=== PATIENT | male | born 1965 | race Caucasian/White ===

== ENCOUNTER 2018-07-17 17:31 | Observation (INO) | payer SELFPAY ==
[2018-07-17] MEDS ORDERED: Sodium Chloride 0.9% 1,000 ML IV ONE (17:33)
[2018-07-17] MEDS ORDERED: Aspirin 81 MG Tab.Chew PO ONE (17:33)
[2018-07-17] MEDS ORDERED: Nitroglycerin 0.4 MG Tab.SL ONE (17:39)
[2018-07-17] MEDS: Nitroglycerin 0.4 MG Tab.SL SL PRN ×3 (17:42→18:00)
[2018-07-17] MEDS ORDERED: Morphine 2 MG/ML Syringe IVPUSH ONE (18:37)
--- NOTE | 2018-07-17 18:47 | CR ---
HISTORY: Chest pain, shortness of breath. TECHNIQUE: One view of the chest. COMPARISON: 02/24/2018. FINDINGS: Cardiac size and pulmonary vasculature within normal limits. There is no acute lung infiltrate or pulmonary edema. No pneumothorax or pleural effusion. Probable sequelae of prior granulomatous disease within the right midlung zone, unchanged. IMPRESSION: No acute disease. Dictated by Casey Rangel MD @ 07/17/2018 6:46:47 PM Dictated by: Casey Rangel MD @ 07/17/2018 18:46:51 (Electronically Signed)
[2018-07-17 18:54] LABS: CHLORIDE,CL 105 mmol/L (98-107); SODIUM,NA 143 mmol/L (136-148)
--- NOTE | 2018-07-17 19:43 | EDM.PDOC ---
ED HPI GENERAL MEDICAL PROBLEM - General Chief Complaint: Chest Pain Stated Complaint: CHEST PAIN Time Seen by Provider: 07/17/18 17:37 Source of Information: Reports: Patient History Limitations: Reports: No Limitations - History of Present Illness INITIAL COMMENTS - FREE TEXT/NARRATIVE: HISTORY AND PHYSICAL: History of present illness: Patient is a 53-year-old male who presents to the ED today with concern for a 10 out of 10 chest pain that started 10 minutes prior to arrival to the ED. Patient describes the chest pain as a sharp pressure and he points to the middle of his chest. Patient states he's never had chest pain like this before. Patient states he was sitting in his car when the symptoms happened and he felt short of breath and sweaty. He states the pain does not radiate anywhere. Patient states he also feels dizzy with the onset of the chest pain. He has not taken any medications prior to arrival to the ED. Patient denies fever, chills, or cough. Denies headache, neck stiff ness, change in vision, syncope, or near syncope. Denies nausea, vomiting, abdominal pain, diarrhea, constipation, or dysuria. Has not noted any blood in urine or stool. Patient has been eating and drinking appropriately. Patient has a history of valve regurgitation but is not sure which valve. Patient denies any other health history. Review of systems: As per history of present illness and below otherwise all systems reviewed and negative. Past medical history: As per history of present illness and as reviewed below otherwise noncontributory. Surgical history: As per history of present illness and as reviewed below otherwise noncontributory. Social history: See social history for further information Family history: As per history of present illness and as reviewed below otherwise noncontributory. Physical exam: General: Patient is alert, oriented. Patient laying on exam table with positive Spear sign. HEENT: Atraumatic, normocephalic, pupils equal and reactive bilaterally, negative for conjunctival pallor or scleral icterus, mucous membranes moist, TMs normal bilaterally, throat clear, neck supple, nontender, trachea midline. No drooling or trismus noted. No meningeal signs. No hot potato voice noted. Lungs: Clear to auscultation, breath sounds equal bilaterally, chest nontender. Heart: S1S2, regular rate and rhythm without overt murmur. Abdomen: Soft, nondistended, nontender. Negative for masses or hepatosplenomegaly. Negative for costovertebral tenderness. Pelvis: Stable nontender. Genitourinary: Deferred. Rectal: Deferred. Skin: Intact, warm, dry. No lesions or rashes noted. Extremities: Atraumatic, negative for cords or calf pain. Neurovascular unremarkable. Neuro: Awake, alert, oriented. Cranial nerves II through XII unremarkable. Cerebellum unremarkable. Motor and sensory unremarkable throughout. Exam nonfocal. Notes: On initial exam, patient did seem to be in pain as he has a positive Spear sign and is grabbing his chest. Aspirin given after arrival to the ED, and EKG performed initially on arrival. 3 rounds of nitroglycerin were then given following the Aspirin with complete resolution of patient's pain. Will do full labwork and imaging today. EKG was reviewed by myself as well as Dr. Ford. While awaiting diagnostics and imaging, patient did have return of chest pain. Morphine was given at this time with complete resolution of symptoms. Consult to Dr. Leblanc. Will admit to observation. Diagnostics: CBC, CMP, EKG, troponin, chest x-ray, UA Therapeutics: Saline, aspirin, nitroglycerin, morphine Impression: Chest pain, unspecified. Plan: 1. Admit to observation to Dr. Leblanc Definitive disposition and diagnosis as appropriate pending reevaluation and review of above. 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 Gastrointestinal History: Reports: Helicobacter Pylori Psychiatric History: Reports: Anxiety - Infectious Disease History Infectious Disease History: Reports: Chicken Pox, Measles, TB Social & Family History - Family History Family Medical History: Noncontributory - Tobacco Use Smoking Status *Q: Never Smoker - Caffeine Use Caffeine Use: Reports: Coffee - Alcohol Use Days Per Week of Alcohol Use: 7 Number of Drinks Per Day: 1 Total Drinks Per Week: 7 - Recreational Drug Use Recreational Drug Use: No ED ROS GENERAL - Review of Systems Review Of Systems: ROS reveals no pertinent complaints other than HPI. ED EXAM, GENERAL - Physical Exam Exam: See Below (see dictation) Course - Vital Signs Last Recorded V/S: Last Vital Signs Temp 36.5 C 07/17/18 19:01 Pulse 51 L 07/17/18 19:01 Resp 16 07/17/18 19:01 BP 121/80 07/17/18 19:01 Pulse Ox 99 07/17/18 19:01 - Orders/Labs/Meds Orders: Active Orders 24 hr Category Date Time Status Admission Status [Patient Status] [ADT] Stat ADT 07/17/18 19:38 Active EKG Documentation Completion [RC] STAT Care 07/17/18 17:33 Active Labs: Laboratory Tests 07/17/18 07/17/18 07/17/18 Range/Units 17:40 17:40 18:35 WBC 10.46 (4.0-11.0) K/uL RBC 5.22 (4.50-5.90) M/uL Hgb 16.2 (13.0-17.0) g/dL Hct 46.7 (38.0-50.0) % MCV 89.5 (80.0-98.0) fL MCH 31.0 (27.0-32.0) pg MCHC 34.7 (31.0-37.0) g/dL RDW Std Deviation 43.8 (28.0-62.0) fl RDW Coeff of Carlos 14 (11.0-15.0) % Plt Count 198 (150-400) K/uL MPV 10.70 (7.40-12.00) fL Neut % (Auto) 53.4 (48.0-80.0) % Lymph % (Auto) 35.7 (16.0-40.0) % [place] % (Auto) 9.5 (0.0-15.0) % Eos % (Auto) 1.1 (0.0-7.0) % Baso % (Auto) 0.3 (0.0-1.5) % Neut # (Auto) 5.6 (1.4-5.7) K/uL Lymph # (Auto) 3.7 H (0.6-2.4) K/uL [place] # (Auto) 1.0 H (0.0-0.8) K/uL Eos # (Auto) 0.1 (0.0-0.7) K/uL Baso # (Auto) 0.0 (0.0-0.1) K/uL Nucleated RBC % 0.0 /100WBC Nucleated RBCs # 0 K/uL Sodium 143 (136-148) mmol/L Potassium 3.5 (3.5-5.1) mmol/L Chloride 105 (98-107) mmol/L Carbon Dioxide 22.0 (21.0-32.0) mmol/L BUN 15 (7.0-18.0) mg/dL Creatinine 1.3 (0.8-1.3) mg/dL Est Cr Clr Drug Dosing 68.38 mL/min Estimated GFR (MDRD) 57.3 ml/min Glucose 111 H (74-106) mg/dL Calcium 9.1 (8.5-10.1) mg/dL Total Bilirubin 0.8 (0.2-1.0) mg/dL AST 22 (15-37) IU/L ALT 36 (14-63) IU/L Alkaline Phosphatase 71 (46-116) U/L Troponin I < 0.050 (0.000-0.056) ng/mL Total Protein 7.4 (6.4-8.2) g/dL Albumin 3.8 (3.4-5.0) g/dL Globulin 3.6 (2.6-4.0) g/dL Albumin/Globulin Ratio 1.1 (0.9-1.6) Lipase 105 (73-393) U/L Urine Color YELLOW Urine Appearance CLEAR Urine pH 6.5 (5.0-8.0) Ur Specific [place] 1.020 (1.001-1.035) Urine Protein NEGATIVE (NEGATIVE) mg/dL Urine Glucose (UA) NEGATIVE (NEGATIVE) mg/dL Urine Ketones 15 H (NEGATIVE) mg/dL Urine Occult Blood NEGATIVE (NEGATIVE) Urine Nitrite NEGATIVE (NEGATIVE) Urine Bilirubin NEGATIVE (NEGATIVE) Urine Urobilinogen 0.2 (<2.0) EU/dL Ur Leukocyte Esterase NEGATIVE (NEGATIVE) Meds: Medications Discontinued Medications Generic Name Dose Route Start Last Admin Trade Name Freq PRN Reason Stop Dose Admin Aspirin 324 mg 07/17/18 17:33 07/17/18 17:42 Aspirin PO 07/17/18 17:34 324 mg ONETIME ONE Administration Sodium Chloride 1,000 mls @ 999 mls/hr 07/17/18 17:33 07/17/18 17:45 Normal Saline IV 07/17/18 18:33 999 mls/hr BOLUS ONE Administration Morphine Sulfate 2 mg 07/17/18 18:37 07/17/18 18:47 Morphine IVPUSH 07/17/18 18:38 2 mg ONETIME ONE Administration Nitroglycerin 0.4 mg 07/17/18 17:33 07/17/18 18:00 Nitrostat SL 0.4 mg Q5M PRN Administration Chest Pain Nitroglycerin Confirm 07/17/18 17:39 07/17/18 17:44 Nitrostat Administered 07/17/18 17:40 Not Given Dose 0.4 mg .ROUTE .STK-MED ONE Departure - Departure Time of Disposition: 20:01 Disposition: Refer to Observation Condition: Fair Clinical Impression: Chest pain Qualifiers: Chest pain type: unspecified Qualified Code(s): R07.9 - Chest pain, unspecified Referrals: PCP,None [Primary Care Provider] - Forms: ED Department Discharge - My Orders Last 24 Hours: My Active Orders 07/17/18 17:33 EKG Documentation Completion [RC] STAT 07/17/18 19:38 Admission Status [Patient Status] [ADT] Stat - Assessment/Plan Last 24 Hours: My Active Orders 07/17/18 17:33 EKG Documentation Completion [RC] STAT 07/17/18 19:38 Admission Status [Patient Status] [ADT] Stat
[2018-07-17] MEDS ORDERED: Acetaminophen 325 MG Tab PO PRN (20:44)
[2018-07-17] MEDS ORDERED: Sodium Chloride 0.9% 2.5 ML Syringe FLUSH PRN (20:44)
[2018-07-17] MEDS ORDERED: oxyCODONE 5 MG Tab PO PRN (20:45)
[2018-07-17] MEDS: Morphine 2 MG/ML Syringe IVPUSH PRN (22:33)
[2018-07-17] MEDS: Sodium Chloride 0.9% 10 ML Syringe FLUSH PRN (22:35)
[2018-07-18] MEDS: Sodium Chloride 0.9% 10 ML Syringe FLUSH PRN (00:48)
[2018-07-18] MEDS: Morphine 2 MG/ML Syringe IVPUSH PRN ×2 (00:48→03:07)
[2018-07-18] MEDS ORDERED: Nitroglycerin 0.2 MG/HR Transdermal Patch TRDERM ONE (02:26)
[2018-07-18] MEDS ORDERED: Heparin Sod,Pork In 0.45% Nacl 25,000 UNIT/500 ML IV.SOLN IV SCH (02:30)
[2018-07-18] MEDS ORDERED: Heparin Sodium 5,000 Units/ML Vial IVPUSH ONE (02:37)
--- NOTE | 2018-07-18 02:41 | PCM.HP ---
H&P History of Present Illness - General Date of Service: 07/18/18 Admit Problem/Dx: Admission Diagnosis/Problem Admission Diagnosis/Problem Chest pain Source of Information: Patient History Limitations: Reports: No Limitations - History of Present Illness Initial Comments - Free Text/Narative: The patient is a 53-year-old gentleman who presented to the emergency department approximately 6 hours ago with a complaint of 10 out of 10 chest pain. The patient reported that the pain that started approximately 10 minutes prior to arrival. The patient had described the pain in the center of his chest radiating into his neck which was described as a 10 out of 10 type of pain. Further, the patient says that the pain "dropped him to his knees". The patient says that he has been having difficulty since April of this year with shortness of breath, cough and difficulty breathing. Patient says that he has had a workup here which had been previously negative. The patient says that he has had some problem with nausea associated with this as well as dizziness and lightheadedness. Further, the patient says that he was essentially doing nothing when the pain started. Onset of Symptoms: Reports: Sudden Duration of Symptoms: Reports: Hour(s):, Getting Worse Location: Reports: Chest Quality: Reports: Dull, Pressure Severity: Moderate Improves with: Reports: Medication, Rest Worsens with: Reports: None Associated Symptoms: Reports: Nausea/Vomiting, Shortness of Breath chest Pain Score (Numeric/FACES): 6 - Related Data Allergies/Adverse Reactions: Allergies Allergy/AdvReac Type Severity Reaction Status Date / Time No Known Allergies Allergy Verified 07/17/18 17:34 Home Medications: Home Meds Anxiety Medication 07/17/18 [History] Past Medical History Cardiovascular History: Reports: Other (See Below) Other Cardiovascular History: " weak and leaky heart valve" Respiratory History: Reports: SOB, Other (See Below) Other Respiratory History: 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 Gastrointestinal History: Reports: Helicobacter Pylori Psychiatric History: Reports: Anxiety - Infectious Disease History Infectious Disease History: Reports: Chicken Pox, Measles, TB Social & Family History - Family History Family Medical History: Noncontributory - Tobacco Use Smoking Status *Q: Never Smoker - Caffeine Use Caffeine Use: Reports: Coffee - Alcohol Use Days Per Week of Alcohol Use: 4 Number of Drinks Per Day: 2 Total Drinks Per Week: 8 - Recreational Drug Use Recreational Drug Use: No H&P Review of Systems - Review of Systems: Review Of Systems: See Below General: Reports: Weakness, Fatigue HEENT: Reports: No Symptoms Pulmonary: Reports: Shortness of Breath, Cough Cardiovascular: Reports: Chest Pain, Palpitations, Lightheadedness Gastrointestinal: Reports: Nausea Genitourinary: Reports: No Symptoms Musculoskeletal: Reports: No Symptoms Skin: Reports: No Symptoms Psychiatric: Reports: No Symptoms Neurological: Reports: No Symptoms Hematologic/Lymphatic: Reports: No Symptoms Immunologic: Reports: No Symptoms Exam - Exam Exam: See Below - Vital Signs Vital Signs: Last Vital Signs Temp 36.9 C 07/18/18 01:13 Pulse 51 L 07/18/18 01:13 Resp 19 07/18/18 01:13 BP 111/76 07/18/18 01:13 Pulse Ox 93 L 07/18/18 01:13 Weight: 89.358 kg - Exam Quality Assessment: No: Supplemental Oxygen General: Alert, Oriented, Cooperative, Mild Distress HEENT: Conjunctiva Clear, EACs Clear, Nares Patent, PERRLA. No: Mucosa Moist & [place] (Dry) Neck: Supple, Trachea Midline Lungs: Clear to Auscultation, Normal Respiratory Effort Cardiovascular: Regular Rate, Regular Rhythm, Normal S1, Normal S2 GI/Abdominal Exam: Normal Bowel Sounds, Soft, Non-Tender, No Distention (Male) Exam: Deferred Rectal (Males) Exam: Deferred Back Exam: Normal Inspection, Full Range of Motion Extremities: Normal Inspection, No Pedal Edema Skin: Warm, Dry, Intact Neurological: Cranial Nerves Intact Psychiatric: Alert, Normal Affect, Normal Mood - Patient Data Lab Results Last 24 hrs: Laboratory Results - last 24 hr 07/17/18 07/17/18 07/17/18 Range/Units 17:40 17:40 18:35 WBC 10.46 (4.0-11.0) K/uL RBC 5.22 (4.50-5.90) M/uL Hgb 16.2 (13.0-17.0) g/dL Hct 46.7 (38.0-50.0) % MCV 89.5 (80.0-98.0) fL MCH 31.0 (27.0-32.0) pg MCHC 34.7 (31.0-37.0) g/dL RDW Std Deviation 43.8 (28.0-62.0) fl RDW Coeff of Carlos 14 (11.0-15.0) % Plt Count 198 (150-400) K/uL MPV 10.70 (7.40-12.00) fL Neut % (Auto) 53.4 (48.0-80.0) % Lymph % (Auto) 35.7 (16.0-40.0) % [place] % (Auto) 9.5 (0.0-15.0) % Eos % (Auto) 1.1 (0.0-7.0) % Baso % (Auto) 0.3 (0.0-1.5) % Neut # (Auto) 5.6 (1.4-5.7) K/uL Lymph # (Auto) 3.7 H (0.6-2.4) K/uL [place] # (Auto) 1.0 H (0.0-0.8) K/uL Eos # (Auto) 0.1 (0.0-0.7) K/uL Baso # (Auto) 0.0 (0.0-0.1) K/uL Nucleated RBC % 0.0 /100WBC Nucleated RBCs # 0 K/uL Sodium 143 (136-148) mmol/L Potassium 3.5 (3.5-5.1) mmol/L Chloride 105 (98-107) mmol/L Carbon Dioxide 22.0 (21.0-32.0) mmol/L BUN 15 (7.0-18.0) mg/dL Creatinine 1.3 (0.8-1.3) mg/dL Est Cr Clr Drug Dosing 68.38 mL/min Estimated GFR (MDRD) 57.3 ml/min Glucose 111 H (74-106) mg/dL Calcium 9.1 (8.5-10.1) mg/dL Total Bilirubin 0.8 (0.2-1.0) mg/dL AST 22 (15-37) IU/L ALT 36 (14-63) IU/L Alkaline Phosphatase 71 (46-116) U/L Troponin I < 0.050 (0.000-0.056) ng/mL Total Protein 7.4 (6.4-8.2) g/dL Albumin 3.8 (3.4-5.0) g/dL Globulin 3.6 (2.6-4.0) g/dL Albumin/Globulin Ratio 1.1 (0.9-1.6) Lipase 105 (73-393) U/L Urine Color YELLOW Urine Appearance CLEAR Urine pH 6.5 (5.0-8.0) Ur Specific [place] 1.020 (1.001-1.035) Urine Protein NEGATIVE (NEGATIVE) mg/dL Urine Glucose (UA) NEGATIVE (NEGATIVE) mg/dL Urine Ketones 15 H (NEGATIVE) mg/dL Urine Occult Blood NEGATIVE (NEGATIVE) Urine Nitrite NEGATIVE (NEGATIVE) Urine Bilirubin NEGATIVE (NEGATIVE) Urine Urobilinogen 0.2 (<2.0) EU/dL Ur Leukocyte Esterase NEGATIVE (NEGATIVE) 07/17/18 Range/Units 23:44 WBC (4.0-11.0) K/uL RBC (4.50-5.90) M/uL Hgb (13.0-17.0) g/dL Hct (38.0-50.0) % MCV (80.0-98.0) fL MCH (27.0-32.0) pg MCHC (31.0-37.0) g/dL RDW Std Deviation (28.0-62.0) fl RDW Coeff of Carlos (11.0-15.0) % Plt Count (150-400) K/uL MPV (7.40-12.00) fL Neut % (Auto) (48.0-80.0) % Lymph % (Auto) (16.0-40.0) % Hardy % (Auto) (0.0-15.0) % Eos % (Auto) (0.0-7.0) % Baso % (Auto) (0.0-1.5) % Neut # (Auto) (1.4-5.7) K/uL Lymph # (Auto) (0.6-2.4) K/uL [place] # (Auto) (0.0-0.8) K/uL Eos # (Auto) (0.0-0.7) K/uL Baso # (Auto) (0.0-0.1) K/uL Nucleated RBC % /100WBC Nucleated RBCs # K/uL Sodium (136-148) mmol/L Potassium (3.5-5.1) mmol/L Chloride (98-107) mmol/L Carbon Dioxide (21.0-32.0) mmol/L BUN (7.0-18.0) mg/dL Creatinine (0.8-1.3) mg/dL Est Cr Clr Drug Dosing mL/min Estimated GFR (MDRD) ml/min Glucose (74-106) mg/dL Calcium (8.5-10.1) mg/dL Total Bilirubin (0.2-1.0) mg/dL AST (15-37) IU/L ALT (14-63) IU/L Alkaline Phosphatase (46-116) U/L Troponin I 2.127 H* (0.000-0.056) ng/mL Total Protein (6.4-8.2) g/dL Albumin (3.4-5.0) g/dL Globulin (2.6-4.0) g/dL Albumin/Globulin Ratio (0.9-1.6) Lipase (73-393) U/L Urine Color Urine Appearance Urine pH (5.0-8.0) Ur Specific [place] (1.001-1.035) Urine Protein (NEGATIVE) mg/dL Urine Glucose (UA) (NEGATIVE) mg/dL Urine Ketones (NEGATIVE) mg/dL Urine Occult Blood (NEGATIVE) Urine Nitrite (NEGATIVE) Urine Bilirubin (NEGATIVE) Urine Urobilinogen (<2.0) EU/dL Ur Leukocyte Esterase (NEGATIVE) Result Diagrams: 07/17/18 17:40 07/17/18 17:40 EKG INTERPRETATION EKG Date: 07/18/18 Time: 02:34 Rhythm: NSR [place]: Normal P-Wave: Present QRS: Normal ST-T: Other (Borderline) QT: Normal Comparison: Change From Previous EKG EKG Interpretation Comments: Low voltage EKG, dynamic changes with flattening of ST segments in V1 and V2 V3 and other precordial leads. Likely anterior infarct. - Problem List (1) NSTEMI (non-ST elevated myocardial infarction) SNOMED Code(s): 99642842 ICD Code: I21.4 - NON-ST ELEVATION (NSTEMI) MYOCARDIAL INFARCTION Status: Acute Priority: High Current Visit: Yes (2) Elevated troponin I level SNOMED Code(s): 174971100 ICD Code: R74.8 - ABNORMAL LEVELS OF OTHER SERUM ENZYMES Status: Acute Priority: High Current Visit: Yes (3) Acute coronary syndrome SNOMED Code(s): 330378719 ICD Code: I24.9 - ACUTE ISCHEMIC HEART DISEASE, UNSPECIFIED Status: Acute Priority: High Current Visit: Yes Problem List Initiated/Reviewed/Updated: Yes Orders Last 24hrs: Active Orders 24 hr Category Date Time Status Admission Status [Patient Status] [ADT] Stat ADT 07/17/18 19:38 Active EKG 12 Lead [EKG Documentation Completion] [RC] AM Care 07/18/18 08:00 Active EKG 12 Lead [EKG Documentation Completion] [RC] STAT Care 07/18/18 02:34 Active Heart Healthy Diet [DIET] Diet 07/18/18 Breakfast Active BMP [BASIC METABOLIC PANEL,BMP] [CHEM] AM Lab 07/18/18 05:11 Ordered CBC WITH AUTO DIFF [HEME] AM Lab 07/18/18 05:11 Ordered TROPONIN I [CHEM] Routine Lab 07/18/18 05:30 Ordered Acetaminophen [Tylenol] Med 07/17/18 20:44 Active 650 mg PO Q6H PRN Heparin Sod,Pork In 0.45% Nacl [Heparin-1/2Ns 25,000 Med 07/18/18 02:30 Ordered Units/500] 25,000 unit in 500 ml IV TITRATE Morphine Med 07/17/18 20:45 Active 2 mg IVPUSH Q2H PRN Nitroglycerin [Nitro-Dur 0.2 MG/Hr] Med 07/18/18 02:26 Once 0.2 mg TRDERM ONETIME ONE Sodium Chloride 0.9% [Saline Flush] Med 07/17/18 20:44 Active 10 ml FLUSH ASDIRECTED PRN Sodium Chloride 0.9% [Saline Flush] Med 07/17/18 20:44 Active 2.5 ml FLUSH ASDIRECTED PRN oxyCODONE Med 07/17/18 20:45 Active 5 mg PO Q4H PRN Convert IV to Saline Lock [OM.PC] Routine Oth 07/17/18 20:44 Ordered Medication Orders Acetaminophen (Tylenol) 650 mg PO Q6H PRN PRN Reason: Pain (mild 1-3) Heparin Sodium/Sodium Chloride (Heparin-1/2ns 25,000 Units/500) 25,000 unit in 500 mls @ 21.446 mls/hr IV TITRATE UZMA; Protocol Morphine Sulfate (Morphine) 2 mg IVPUSH Q2H PRN PRN Reason: Pain (severe 7-10) Last Admin: 07/18/18 00:48 Dose: 2 mg Admin: 07/17/18 22:33 Dose: 2 mg Nitroglycerin (Nitro-Dur 0.2 Mg/Hr) 0.2 mg TRDERM ONETIME ONE Stop: 07/18/18 02:27 Oxycodone HCl (Oxycodone) 5 mg PO Q4H PRN PRN Reason: Pain (moderate 4-6) Last Admin: 07/17/18 21:07 Dose: 5 mg Sodium Chloride (Saline Flush) 10 ml FLUSH ASDIRECTED PRN PRN Reason: Keep Vein Open Last Admin: 07/18/18 00:48 Dose: 10 ml Admin: 07/17/18 22:35 Dose: 10 ml Sodium Chloride (Saline Flush) 2.5 ml FLUSH ASDIRECTED PRN PRN Reason: Keep Vein Open Assessment/Plan Comment:: The patient is a 53-year-old gentleman who had presented to the emergency department with a complaint of chest pain. I have reviewed both EKGs from admission and most recently. Patient does have a marked elevation in his troponin from undetectable to 2.1. As a result of this this establishes a diagnosis of NSTEMI. The patient will be started on heparin drip. I've also started the patient on Nitropaste. The patient will be kept in telemetry. I've made arrangements for the patient to be flown to [place] emergency room for further evaluation and treatment. Dr. Gonzalez accepting. This history and physical will also be considered as a discharge summary.
[2018-07-18] MEDS ORDERED: Nitroglycerin 2% Oint 1 GM UD Packet TOP ONE (03:00)
== END 2018-07-18 03:37 ==
LOC: MW.ED 17:31 → MW.MS 20:07
PROVIDERS: ADMIT Internal Medicine; ATTEND Internal Medicine
DX: I21.4 Non-ST elevation (NSTEMI) myocardial infarction (principal); I24.9 Acute ischemic heart disease, unspecified; F41.9 Anxiety disorder, unspecified; Z79.899 Other long term (current) drug therapy
CPT/HCPCS: 36415; 71045; 71045-26; 80053; 81003; 83690; 84484; 85025; 85610; 93005; 96361; 96374; 96375; 96376; 99284; 99285-25; A9270-GY; G0378; J1644; J2270; J7040

== ENCOUNTER 2018-08-27 16:55 | Emergency (ER) | payer SELFPAY ==
[2018-08-27] MEDS ORDERED: Sodium Chloride 0.9% 10 ML Syringe FLUSH PRN (17:03)
[2018-08-27] MEDS ORDERED: Sodium Chloride 0.9% 2.5 ML Syringe FLUSH PRN (17:03)
[2018-08-27] MEDS ORDERED: Sodium Chloride 0.9% 10 ML SDV IV PRN (17:03)
--- NOTE | 2018-08-27 17:20 | EDM.PDOC ---
ED HPI GENERAL MEDICAL PROBLEM - General Chief Complaint: Trauma Stated Complaint: TRAUMA ALERT Time Seen by Provider: 08/27/18 17:16 - History of Present Illness INITIAL COMMENTS - FREE TEXT/NARRATIVE: HISTORY AND PHYSICAL: History of present illness: Patient's 53-year-old white male with history coronary artery disease with left main stenting and recent past he was subsequently diagnosed with pneumonia and had treatment with antibiotics for which she's finished since. He comes in today with coughing that resulted in syncope he states he's had posttussive syncope presumptively vasovagal episodes multiple times prior. He denies chest pain he states he has had some shortness of breath and is frustrated with the persistence of the cough. No fever chills nausea vomiting or other complaints Review of systems: As per history of present illness and below otherwise all systems reviewed and negative. Past medical history: As per history of present illness and as reviewed below otherwise noncontributory. Surgical history: As per history of present illness and as reviewed below otherwise noncontributory. Social history: No reported history of drug or alcohol abuse. Family history: As per history of present illness and as reviewed below otherwise noncontributory. Physical exam: HEENT: Atraumatic, normocephalic, pupils reactive, negative for conjunctival pallor or scleral icterus, mucous membranes moist, throat clear, neck supple, nontender, trachea midline. Lungs: Clear to auscultation, breath sounds equal bilaterally, chest nontender. Heart: S1S2, regular, negative for clicks, rubs, or JVD. Abdomen: Soft, nondistended, nontender. Negative for masses or hepatosplenomegaly. Negative for costovertebral tenderness. Pelvis: Stable nontender. Genitourinary: Deferred. Rectal: Deferred. Extremities: Atraumatic, negative for cords or calf pain. Neurovascular unremarkable. Neuro: Awake, alert, oriented. Cranial nerves II through XII unremarkable. Cerebellum unremarkable. Motor and sensory unremarkable throughout. Exam nonfocal. Diagnostics: CBC CMP troponin PT/INR BNP chest x-ray EKG CT brain Therapeutics: IV O2 monitor Impression: #1 posttussive syncope #2 history of coronary artery disease with coronary stent #3 history of pneumonia Definitive disposition and diagnosis as appropriate pending reevaluation and review of above. - Related Data Allergies Allergy/AdvReac Type Severity Reaction Status Date / Time No Known Allergies Allergy Verified 07/17/18 17:34 Home Meds: Home Meds Albuterol Sulfate [Proair Respiclick] 90 mcg IH DAILY 08/27/18 [History] Aspirin [Adult Low Dose Aspirin EC] 81 mg PO DAILY 08/27/18 [History] Clopidogrel [Plavix] 75 mg PO DAILY 08/27/18 [History] Doxycycline Hyclate 100 mg PO DAILY 08/27/18 [History] Escitalopram [Lexapro] 10 mg PO DAILY 08/27/18 [History] Nitroglycerin [Nitrostat] 0.4 mg SL DAILY 08/27/18 [History] atorvaSTATin [Lipitor] 40 mg PO BEDTIME 08/27/18 [History] clonazePAM [Clonazepam] 0.25 mg PO DAILY 08/27/18 [History] predniSONE [Prednisone] 50 mg PO DAILY 08/27/18 [History] Past Medical History Cardiovascular History: Reports: Other (See Below) Other Cardiovascular History: " weak and leaky heart valve" Respiratory History: Reports: SOB, Other (See Below) Other Respiratory History: 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 ED EXAM, GENERAL - Physical Exam Exam: See Below (See dictation) Course - Vital Signs Last Recorded V/S: Last Vital Signs Temp 36.2 C 08/27/18 16:55 Pulse 95 08/27/18 16:55 Resp 16 08/27/18 16:55 BP 103/76 08/27/18 16:55 Pulse Ox 97 08/27/18 16:55 - Orders/Labs/Meds Orders: Active Orders 24 hr Category Date Time Status Admission Status [Patient Status] [ADT] Stat ADT 08/27/18 17:58 Active Cardiac Monitoring [RC] . DIRECTED Care 08/27/18 17:03 Active EKG Documentation Completion [RC] STAT Care 08/27/18 17:03 Active Oxygen Therapy [RC] PRN Care 08/27/18 17:03 Active Pulse Oximetry [RC] CONTINUOUS Care 08/27/18 17:03 Active CULTURE BLOOD [BC] Stat Lab 08/27/18 17:15 Stop Req CULTURE BLOOD [BC] Stat Lab 08/27/18 17:25 Received Sodium Chloride 0.9% [Normal Saline] Med 08/27/18 17:03 Active 10 ml IV ASDIRECTED PRN Sodium Chloride 0.9% [Saline Flush] Med 08/27/18 17:03 Active 10 ml FLUSH ASDIRECTED PRN Sodium Chloride 0.9% [Saline Flush] Med 08/27/18 17:03 Active 2.5 ml FLUSH ASDIRECTED PRN Blood Culture x2 Reflex Set [OM.PC] Stat Ot 08/27/18 17:40 Ordered Peripheral IV Insertion Adult [OM.PC] Stat Ot 08/27/18 17:03 Ordered Medication Orders Sodium Chloride (Saline Flush) 10 ml FLUSH ASDIRECTED PRN PRN Reason: Keep Vein Open Sodium Chloride (Saline Flush) 2.5 ml FLUSH ASDIRECTED PRN PRN Reason: Keep Vein Open Sodium Chloride (Normal Saline) 10 ml IV ASDIRECTED PRN PRN Reason: IV Use Labs: Laboratory Tests 08/27/18 08/27/18 08/27/18 Range/Units 17:15 17:15 17:15 WBC 14.74 H (4.0-11.0) K/uL RBC 5.73 (4.50-5.90) M/uL Hgb 17.9 H (13.0-17.0) g/dL Hct 53.6 H (38.0-50.0) % MCV 93.5 (80.0-98.0) fL MCH 31.2 (27.0-32.0) pg MCHC 33.4 (31.0-37.0) g/dL RDW Std Deviation 48.5 (28.0-62.0) fl RDW Coeff of Carlos 14 (11.0-15.0) % Plt Count 198 (150-400) K/uL MPV 10.90 (7.40-12.00) fL Add Manual Diff YES Neutrophils % (Manual) 66 (48.0-80.0) % Band Neutrophils % 3 % Lymphocytes % (Manual) 21 (16.0-40.0) % Monocytes % (Manual) 9 (0.0-15.0) % Eosinophils % (Manual) 1 (0.0-7.0) % Nucleated RBC % 0.0 /100WBC Absolute Seg Neuts 9.7 H (1.4-5.7) Band Neutrophils # 0.4 Lymphocytes # (Manual) 3.1 H (0.6-2.4) Monocytes # (Manual) 1.3 H (0.0-0.8) Eosinophils # (Manual) 0.1 (0.0-0.7) Nucleated RBCs # 0 K/uL INR 0.96 Sodium 143 (136-148) mmol/L Potassium 4.2 (3.5-5.1) mmol/L Chloride 108 H (98-107) mmol/L Carbon Dioxide 25.8 (21.0-32.0) mmol/L BUN 17 (7.0-18.0) mg/dL Creatinine 1.3 (0.8-1.3) mg/dL Est Cr Clr Drug Dosing 68.38 mL/min Estimated GFR (MDRD) 57.3 ml/min Glucose 138 H (74-106) mg/dL Calcium 9.1 (8.5-10.1) mg/dL Total Bilirubin 1.3 H (0.2-1.0) mg/dL AST 23 (15-37) IU/L ALT 60 (14-63) IU/L Alkaline Phosphatase 85 (46-116) U/L B-Natriuretic Peptide (<100) PG/ML Total Protein 7.0 (6.4-8.2) g/dL Albumin 3.4 (3.4-5.0) g/dL Globulin 3.6 (2.6-4.0) g/dL Albumin/Globulin Ratio 0.9 (0.9-1.6) Urine Color Urine Appearance Urine pH (5.0-8.0) Ur Specific [place] (1.001-1.035) Urine Protein (NEGATIVE) mg/dL Urine Glucose (UA) (NEGATIVE) mg/dL Urine Ketones (NEGATIVE) mg/dL Urine Occult Blood (NEGATIVE) Urine Nitrite (NEGATIVE) Urine Bilirubin (NEGATIVE) Urine Urobilinogen (<2.0) EU/dL Ur Leukocyte Esterase (NEGATIVE) Urine RBC (0-2/HPF) Urine WBC (0-5/HPF) Ur Epithelial Cells (NONE-FEW) Urine Bacteria (NEGATIVE) 08/27/18 08/27/18 Range/Units 17:15 17:30 WBC (4.0-11.0) K/uL RBC (4.50-5.90) M/uL Hgb (13.0-17.0) g/dL Hct (38.0-50.0) % MCV (80.0-98.0) fL MCH (27.0-32.0) pg MCHC (31.0-37.0) g/dL RDW Std Deviation (28.0-62.0) fl RDW Coeff of Carlos (11.0-15.0) % Plt Count (150-400) K/uL MPV (7.40-12.00) fL Add Manual Diff Neutrophils % (Manual) (48.0-80.0) % Band Neutrophils % % Lymphocytes % (Manual) (16.0-40.0) % Monocytes % (Manual) (0.0-15.0) % Eosinophils % (Manual) (0.0-7.0) % Nucleated RBC % /100WBC Absolute Seg Neuts (1.4-5.7) Band Neutrophils # Lymphocytes # (Manual) (0.6-2.4) Monocytes # (Manual) (0.0-0.8) Eosinophils # (Manual) (0.0-0.7) Nucleated RBCs # K/uL INR Sodium (136-148) mmol/L Potassium (3.5-5.1) mmol/L Chloride (98-107) mmol/L Carbon Dioxide (21.0-32.0) mmol/L BUN (7.0-18.0) mg/dL Creatinine (0.8-1.3) mg/dL Est Cr Clr Drug Dosing mL/min Estimated GFR (MDRD) ml/min Glucose (74-106) mg/dL Calcium (8.5-10.1) mg/dL Total Bilirubin (0.2-1.0) mg/dL AST (15-37) IU/L ALT (14-63) IU/L Alkaline Phosphatase (46-116) U/L B-Natriuretic Peptide 106 H (<100) PG/ML Total Protein (6.4-8.2) g/dL Albumin (3.4-5.0) g/dL Globulin (2.6-4.0) g/dL Albumin/Globulin Ratio (0.9-1.6) Urine Color YELLOW Urine Appearance CLEAR Urine pH 5.5 (5.0-8.0) Ur Specific [place] >= 1.030 (1.001-1.035) Urine Protein NEGATIVE (NEGATIVE) mg/dL Urine Glucose (UA) NEGATIVE (NEGATIVE) mg/dL Urine Ketones NEGATIVE (NEGATIVE) mg/dL Urine Occult Blood TRACE-INTACT H (NEGATIVE) Urine Nitrite NEGATIVE (NEGATIVE) Urine Bilirubin NEGATIVE (NEGATIVE) Urine Urobilinogen 0.2 (<2.0) EU/dL Ur Leukocyte Esterase NEGATIVE (NEGATIVE) Urine RBC 0-1 (0-2/HPF) Urine WBC 0-1 (0-5/HPF) Ur Epithelial Cells RARE (NONE-FEW) Urine Bacteria RARE (NEGATIVE) Meds: Medications Generic Name Dose Route Start Last Admin Trade Name Freq PRN Reason Stop Dose Admin Sodium Chloride 10 ml 08/27/18 17:03 Saline Flush FLUSH ASDIRECTED PRN Keep Vein Open Sodium Chloride 2.5 ml 08/27/18 17:03 Saline Flush FLUSH ASDIRECTED PRN Keep Vein Open Sodium Chloride 10 ml 08/27/18 17:03 Normal Saline IV ASDIRECTED PRN IV Use Discontinued Medications Generic Name Dose Route Start Last Admin Trade Name Freq PRN Reason Stop Dose Admin Iopamidol 50 ml 08/27/18 18:47 08/27/18 18:48 Isovue-370 (76%) IV 08/27/18 18:48 50 ml ONETIME ONE Administration Departure - Departure Time of Disposition: 19:06 Disposition: Home, Self-Care 01 Condition: Good Clinical Impression: Hand injury, Boxers fracture - Discharge Information Referrals: PCP,Unknown [Primary Care Provider] - Forms: ED Department Discharge Additional Instructions: The following information is given to patients seen in the emergency department who are being discharged to home. This information is to outline your options for follow-up care. We provide all patients seen in our emergency department with a follow-up referral. The need for follow-up, as well as the timing and circumstances, are variable depending upon the specifics of your emergency department visit. If you don't have a primary care physician on staff, we will provide you with a referral. We always advise you to contact your personal physician following an emergency department visit to inform them of the circumstance of the visit and for follow-up with them and/or the need for any referrals to a consulting specialist. The emergency department will also refer you to a specialist when appropriate. This referral assures that you have the opportunity for followup care with a specialist. All of these measure are taken in an effort to provide you with optimal care, which includes your followup. Under all circumstances we always encourage you to contact your private physician who remains a resource for coordinating your care. When calling for followup care, please make the office aware that this follow-up is from your recent emergency room visit. If for any reason you are refused follow-up, please contact the [facility] emergency department at and asked to speak to the emergency department charge nurse. [facility] [address], [address] [place] [address] Ulnar gutter splint aluminum/foam splint as directed Motrin/Tylenol as directed follow-up orthopedic surgery: Scheduled appointment return as needed as discussed - My Orders Last 24 Hours: My Active Orders 08/27/18 17:03 Cardiac Monitoring [RC] . DIRECTED EKG Documentation Completion [RC] STAT Oxygen Therapy [RC] PRN Pulse Oximetry [RC] CONTINUOUS Sodium Chloride 0.9% [Normal Saline] 10 ml IV ASDIRECTED PRN Sodium Chloride 0.9% [Saline Flush] 10 ml FLUSH ASDIRECTED PRN Sodium Chloride 0.9% [Saline Flush] 2.5 ml FLUSH ASDIRECTED PRN Peripheral IV Insertion Adult [OM.PC] Stat 08/27/18 17:15 CULTURE BLOOD [BC] Stat 08/27/18 17:25 CULTURE BLOOD [BC] Stat 08/27/18 17:40 Blood Culture x2 Reflex Set [OM.PC] Stat 08/27/18 17:58 Admission Status [Patient Status] [ADT] Stat - Assessment/Plan Last 24 Hours: My Active Orders 08/27/18 17:03 Cardiac Monitoring [RC] . DIRECTED EKG Documentation Completion [RC] STAT Oxygen Therapy [RC] PRN Pulse Oximetry [RC] CONTINUOUS Sodium Chloride 0.9% [Normal Saline] 10 ml IV ASDIRECTED PRN Sodium Chloride 0.9% [Saline Flush] 10 ml FLUSH ASDIRECTED PRN Sodium Chloride 0.9% [Saline Flush] 2.5 ml FLUSH ASDIRECTED PRN Peripheral IV Insertion Adult [OM.PC] Stat 08/27/18 17:15 CULTURE BLOOD [BC] Stat 08/27/18 17:25 CULTURE BLOOD [BC] Stat 08/27/18 17:40 Blood Culture x2 Reflex Set [OM.PC] Stat 08/27/18 17:58 Admission Status [Patient Status] [ADT] Stat
--- NOTE | 2018-08-27 17:39 | CR ---
INDICATION: Hx of heart problems. Pt is coughing so hard hes passing out. TECHNIQUE: Chest 1 view. COMPARISON: FINDINGS: Cardiovascular and mediastinum: Heart size and vasculature are normal in caliber and appearance. Mediastinum is within normal limits. Lungs and pleural space: Lungs are clear. No sign of infiltrate or mass. No sign of pleural effusion. No pneumothorax. Bones and soft tissues: No significant findings. IMPRESSION: Unremarkable chest. Dictated by: Norman Barrett MD @ 08/27/2018 17:37:54 (Electronically Signed)
--- NOTE | 2018-08-27 17:39 | CT ---
Indication: Coughing so hard pt is passing out Technique: CT of the head without contrast. Coronal and sagittal reformatted images. Bone and soft tissue algorithms. Comparison: 03/11/2018 CT head Findings: No acute intracranial hemorrhage or extra-axial collection. No evidence of acute cortical infarction. No mass effect or midline shift. Normal cerebral volume. The ventricles are normal in size, shape and contour. There is normal lenz and white matter differentiation. The orbital contents are normal. Mastoid air cells are clear. No calvarial fractures. No lytic or sclerotic osseous lesions within the calvarium or skull base. Scalp and other imaged soft tissue structures are normal. Mild polypoid mucosal thickening in the left maxillary sinus. Impression: No acute intracranial abnormality. Please note that all CT scans at this facility use dose modulation, iterative reconstruction, and/or weight-based dosing when appropriate to reduce radiation dose to as low as reasonably achievable. Dictated by Norman Davis MD @ Aug 27 2018 5:34PM Signed by Dr. Norman Davis @ Aug 27 2018 5:38PM
[2018-08-27] MEDS ORDERED: Iopamidol 755 MG/ML 50 ML Bottle IV ONE (18:47)
--- NOTE | 2018-08-27 19:01 | CT ---
INDICATION: Shortness of breath. History of "blockage" not otherwise specified. TECHNIQUE: Contrast-enhanced chest CT. 50 cc nonionic Isovue-370 administered. COMPARISON: Correlation is made with a single-view chest x-ray August 27, 2018 and July 17, 2018. FINDINGS : Adequate opacification of the pulmonary arterial tree. No filling defects identified to indicate acute pulmonary emboli. No thoracic aortic aneurysm or dissection. Calcified granulomas right upper lobe with calcified right hilar lymph nodes. Coronary artery calcifications and/or coronary artery stents. No pleural or pericardial effusions. Clear left lung. Normal included skeleton. Images of the upper abdomen demonstrate calcified splenic granulomas. IMPRESSION: 1. No acute cardiopulmonary process identified. 2. Granulomatous changes right upper lobe. 3. Coronary artery calcification compatible with coronary arterial disease. Please note that all CT scans at this facility use dose modulation, iterative reconstruction, and/or weight-based dosing when appropriate to reduce radiation dose to as low as reasonably achievable. Dictated by Pete Tadeo MD @ Aug 27 2018 6:53PM Signed by Dr. Pete Tadeo @ Aug 27 2018 7:00PM
== END 2018-08-27 20:14 | disposition home or self-care (01) ==
LOC: MW.ED 16:55
DX: R55 Syncope and collapse (principal); I25.10 Atherosclerotic heart disease of native coronary artery without angina pectoris; F41.9 Anxiety disorder, unspecified; Z87.01 Personal history of pneumonia (recurrent); Z95.5 Presence of coronary angioplasty implant and graft; Z79.82 Long term (current) use of aspirin; Z79.899 Other long term (current) drug therapy
CPT/HCPCS: 70450; 71045; 71275; 80053; 81001; 83880; 85025; 85610; 87040; 93005; 99284; Q9967